=== PATIENT | male | born 1955 | race Caucasian/White ===

== ENCOUNTER 2024-07-02 09:18 | Emergency (ER) | payer MEDICARE, BC, SELFPAY ==
[2024-07-02 09:30] VITALS: BP 193/108
[2024-07-02 09:49] VITALS: BP 177/100
--- NOTE | 2024-07-02 09:51 | ED.GENMED ---
History of Present Illness
General
Chief Complaint: Blood Pressure Problem
Source: patient
Time Seen by Provider: 07/02/24 09:40
History of Present Illness
History of Present Illness:
68-year-old male presents to the emergency room complaining of elevated blood pressure and headache. Patient does have a history of hypertension for which he was taking losartan but over the past couple weeks he has noticed his blood pressure has
been much more elevated in association with his headache. The headache waxes and wanes in intensity. He states he does not feel any headache at all when he first wakes up but about half hour later it returns. No improvement with Tylenol or
ibuprofen. No fever or chills. Headache is generalized most of the time but at other times it seems more focal around the right frontal region. No focal weakness numbness or tingling. No nausea or vomiting. Patient Nuys chest pain or shortness
of breath.
Phy Exam
Physical Exam
Physical Exam:
General: Awake, Alert, Oriented X3. No acute distress.
Vitals: unremarkable
Head: Atraumatic
Eyes: Pupils equal, EOMI
Throat: Airway intact, no exudates
Neck: Trachea midline
Lungs: Clear and equal b/l
Heart: Regular rate, no murmurs
Abd: Soft, Nontender, No pulsatile mass
Neuro: Cranial nerves intact, muscle strength equal bilaterally, cerebellar exam normal
Skin: Warm, dry, no rash
Extremities: pulses equal b/l, no edema
Course
Orders/Labs/Results
Orders:
Orders
07/02/24 09:50
Electrocardiogram (*1) Urgent
Reason for Study: Vertigo / Dizzy
EKG- Treatment ONCE
07/02/24 09:51
CT Head W/o Iv Contrast Urgent
Comment:
Reason For Exam: new onset headache x 2 weeks
07/02/24 09:58
Basic Metabolic Panel Urgent
Complete Blood Count/With Diff Urgent
TSH Reflex To Free T4 Urgent
07/02/24 10:44
Potassium Chloride 10% Elixir [KCl Elixir] 40 meq PO NOW STA
07/02/24 10:55
Urinalysis Reflex To Culture Urgent
Date Specimen was Collected: 07/02/24
Time Specimen was Collected: 10:53
07/02/24 11:45
HydrALAZINE [Apresoline] 10 mg PO NOW STA
Abnormal Lab Results
07/02/24
09:58
MCHC 37.5 H g/dL
(33.0-37.0)
MPV 10.9 H fL
(7.4-10.4)
Absolute Lymphs (auto) 0.9 L 10^3/uL
(1.2-3.4)
Neutrophils % 80.6 H %
(42.2-75.2)
Lymphocytes % 11.7 L %
(20.5-51.1)
Potassium 2.8 L mmol/L
(3.5-5.1)
Chloride 97 L mmol/L
(98-107)
Glucose 149 H mg/dl
(70-99)
07/02/24 09:58
07/02/24 09:58
Vital Signs
Initial and Last Documented VS:
Initial Vital Signs
Temp Pulse Resp BP Pulse Ox
98.1 F 89 20 193/108 99
07/02/24 09:30 07/02/24 09:30 07/02/24 09:30 07/02/24 09:30 07/02/24 09:30
Last Documented Vital Signs
Temp Pulse Resp BP Pulse Ox
98.1 F 68 18 178/97 99
07/02/24 09:30 07/02/24 13:00 07/02/24 13:00 07/02/24 13:00 07/02/24 12:30
MDM/Problems Addressed
Differential Diagnosis Includes:
Uncontrolled hypertension, renal insufficiency, electrolyte abnormality, intracranial mass
MDM/Problems Addressed:
Patient presents with headache, elevated blood pressure. Workup here is relatively unremarkable. Does have persistent hypertension. Patient given a dose of hydralazine here to help lower his blood pressure today we will have him start amlodipine
and follow with his primary care provider.
*Radiology
Radiology exam reviewed: radiology read reviewed
*Pulse Oximetry
Patient hypoxic: no
*EKG
Interpreted by ED Provider?: Yes
Interpretation: normal
Heart Rate: 73
Rate: normal
Rhythm: sinus and PAC's
Ischemia: non-specific ST changes
*[employer] Custodian Interpretation
Rate: normal
Interpretation: abnormal
Heart Rate: 73
Rhythm: sinus and PAC's
*Critical Care Note
Total Time (30-74mins, 75-104mins- exclusive of procedures): Not Applicable
ED Attending Note
-
Portions of this chart may have been created with voice recognition software.� Occasional wrong word or��sound alike� substitutions may have occurred due to the inherent limitations of voice recognition software.
Discharge Plan
Departure
Patient Disposition: Home (Routine Discharge)
Date of Disposition: 07/02/24
Time of Disposition: 12:36
Patient with high blood pressure during this ER visit?: Yes
Condition: Good
Discharge Problem:
Uncontrolled hypertension, Headache, Hypokalemia
Instructions: Hypokalemia, High Blood Pressure (DC), Headache, Adult (DC)
Prescriptions:
New
potassium chloride 20 mEq tablet,ER particles/crystals
20 meq PO ONCE Qty: 30 0RF
amlodipine [Norvasc] 5 mg tablet
5 mg PO DAILY Qty: 30 0RF
Referrals:
Hailey Pantoja PA [Family Provider] -
Activity Restrictions/Additional Instructions:
Follow up with your primary care doctor as scheduled. I have sent two prescriptions for you. First is a blood pressure medication, Norvasc which you take once a day. Second in a potassium replacement pill.
Interventions
Interventions:
*Risk Screen - Suicide Last Done: 07/02/24 09:30
*General Assessment Last Done: 07/02/24 09:30
*Neglect/Abuse Screening Last Done: 07/02/24 09:30
*Nursing Disposition Last Done: 07/02/24 13:19
ED- Cardiac Assessment Last Done: 07/02/24 10:00
ED- Neurological Assessment Last Done: 07/02/24 10:00
ED- Pulmonary Assessment Last Done: 07/02/24 10:00
Discharge Date and Time
Discharge Date/Time: 07/02/24 13:19
Print Language: AFGHAN
[2024-07-02 09:57] VITALS: BMI 22.2
[2024-07-02 10:26] LABS: Blood Urea Nitrogen 16 mg/dl (9-20); Carbon Dioxide 28 mmol/L (22-30); Chloride 97 mmol/L (98-107); Estimated Creatinine Clearance 60 ml/min; Glucose 149 mg/dl (70-99); Potassium 2.8 mmol/L (3.5-5.1); Sodium 136 mmol/L (135-145); eGFR 59.84
[2024-07-02] MEDS: KCL ELIXIR 40 MEQ PO (11:01)
[2024-07-02 11:04] LABS: % Basophils 0.4 % (0-2); % Eosinophils 0.5 % (0-6); % Immature Granulocytes 0.4 % (0-0.5); % Lymphocytes 11.7 % (20.5-51.1); % Monocytes 6.4 % (1.7-9.3); % Neutrophils 80.6 % (42.2-75.2); Absolute Lymphocytes 0.9 10^3/uL (1.2-3.4); Absolute Monocytes 0.5 10^3/uL (0.1-0.6); Absolute Neutrophils 6.3 10^3/uL (1.4-6.5); Hematocrit 42.7 % (39.0-52.0); Mean Corp Hgb Conc. 37.5 g/dL (33.0-37.0); Mean Corpuscular Hgb 30.9 pg (27.0-31.0); Mean Corpuscular Volume 82.4 fL (80.0-94.0); Mean Platelet Volume 10.9 fL (7.4-10.4); Nucleated Red Blood Cells % 0 % (-); Platelet Count 198 10^3/uL (130-400); Red Blood Cell Count 5.18 10^6/uL (4.70-6.10); Red Cell Dist. Width 12.2 % (11.5-14.5); White Blood Cell Count 7.8 10^3/uL (4.8-10.8)
[2024-07-02 11:09] LABS: TSH Reflex To Free T4 1.05 uIU/ml (0.47-4.68)
[2024-07-02 11:12] VITALS: BP 180/97
[2024-07-02 11:19] LABS: Urine Albumin Negative (Neg - Trace); Urine Bilirubin Negative (Negative); Urine Character Clear (Clear); Urine Color Yellow; Urine Glucose Negative (Negative); Urine Ketone Negative (Negative); Urine Leukocyte Negative (Negative); Urine Nitrite Negative (Negative); Urine Occult Blood Negative (Negative); Urine Specific Gravity 1.015 (<1.030); Urine Urobilinogen Negative (Neg - 1+)
[2024-07-02 12:00] VITALS: BP 189/95
[2024-07-02] MEDS: APRESOLINE 10 MG PO (12:24)
[2024-07-02 12:44] VITALS: BP 174/90
[2024-07-02 13:00] VITALS: BP 178/97
== END 2024-07-02 13:19 | disposition home or self-care (01) ==
LOC: EMR 09:18
PROVIDERS: EMERGENCY PHYSICIAN Emergency Medicine; FAMILY PHYSICIAN Physician Assistant Medical
DX: I10 Essential (primary) hypertension (principal); R51.9 Headache, unspecified; E87.6 Hypokalemia
CPT/HCPCS: 99284; 70450; 80048; 81003; 84443; 85025; 93005

== ENCOUNTER → 2024-08-11 13:31 | Outpatient (REF) | payer MEDICARE, BC, SELFPAY | LOC: RAD 13:31 | PROVIDERS: ATTENDING PHYSICIAN Physician Assistant Medical | DX: R42 Dizziness and giddiness (principal); R09.89 Other specified symptoms and signs involving the circulatory and respiratory systems | CPT/HCPCS: 93880 ==

== ENCOUNTER 2025-10-17 11:04 | Emergency (ER) | payer BC, SELFPAY ==
--- NOTE | 2025-10-17 11:20 | ED.GENMED ---
History of Present Illness
General
Chief Complaint: CODE
Time Seen by Provider: 10/17/25 11:20
History of Present Illness
History of Present Illness:
Patient presents to the emergency department in cardiac arrest. He is a 69-year-old male with a history of hypertension. He was found to be unresponsive by bystanders on a running path next to a bench. He was gurgling. Police found him to be in
a shockable rhythm and he was defibrillated with an AED. On medic arrival he was in PEA which she sustained call to 911 was around 10:15 AM.
Phy Exam
Physical Exam
Physical Exam:
General: Unresponsive, intubated
Head: NCAT
Neck, Normal in appearance, no swelling
Respiratory: Intubated on ventilator, breath sounds equal bilaterally
Abdomen: No distension
Ext: no edema, left tibial IO
Neuro: Obtunded, GCS 3 T
Skin: pale
Course
Orders/Labs/Results
Orders:
Orders
10/17/25 11:05
Amiodarone [Cordarone] 450 mg .ROUTE .STK-MED ONE
Calcium CHLORIDE [Calcium Chloride 10% Syringe] 1,000 mg .ROUTE .STK-MED ONE
EPINEPHrine [Adrenalin 1 mg/10 ml] 4 mg .ROUTE .STK-MED ONE
Lidocaine HCl/Pf [Xylocaine] 50 mg .ROUTE .STK-MED ONE
Sodium Bicarbonate 50 meq .ROUTE .STK-MED ONE
*Pulse Oximetry
Patient hypoxic: yes
*Critical Care Note
Total Time (30-74mins, 75-104mins- exclusive of procedures): see below
comment:
The high probability of a clinically significant, sudden or life threatening deterioration of the cardiovsacular system(s) required my full and direct attention, intervention and personal management. The aggregate critical care time was 35 minutes.
This time is in addition to time spent performing reported procedures but includes the following:
[x] Data Review and interpretation
[x] Patient assessment and monitoring of vital signs
[x] Documentation
[x] Medication orders and management
ED Attending Note
ED Attending Note
ED Attending Note:
Patient arrives to the emergency department in cardiac arrest. Initial rhythm was ventricular fibrillation. Patient was given amiodarone and lidocaine. He was defibrillated without success. CPR was continued and ACLS protocols were followed.
Patient continued to have PEA on monitor without any recurrent shockable rhythms. At 1119, which was over 1 hour of downtime, resuscitative efforts were terminated and deemed to be futile given low chance of any neurologic recovery. TOD 1119.
Attempted to contact patient's Selene and left a voicemail for her. There is no family at the hospital
Family Selene came to hospital and was updated.
Attempted to aluminum boats assembler who was at lunch until 1pm.
Spoke to medical/surgery registered nurse who will evaluate patient and complete certificate
-
Portions of this chart may have been created with voice recognition software.� Occasional wrong word or��sound alike� substitutions may have occurred due to the inherent limitations of voice recognition software.
Discharge Plan
Departure
Patient Disposition:
Date of Disposition: 10/17/25
Time of Disposition: 11:29
Discharge Problem:
Cardiac arrest
Prescriptions:
No Action
potassium chloride 20 mEq tablet,ER particles/crystals
20 meq PO ONCE Qty: 30 0RF
amlodipine [Norvasc] 5 mg tablet
5 mg PO DAILY Qty: 30 0RF
Referrals:
UNKNOWN - PT NOT,INTERVIEWE [Family Provider]
Interventions
Interventions:
*Nursing Disposition Last Done: 10/17/25 14:21
Discharge Date and Time
Discharge Date/Time: 10/17/25 14:50
Print Language: TURKMEN
[2025-10-17 11:34] VITALS: BMI 25.4
== END 2025-10-17 14:50 | disposition expired ==
LOC: EMR 11:04
PROVIDERS: EMERGENCY PHYSICIAN Emergency Medicine
DX: I46.9 Cardiac arrest, cause unspecified (principal); I10 Essential (primary) hypertension
CPT/HCPCS: 99291